=== PATIENT | male | born 1940 | race Caucasian/White ===

== ENCOUNTER → 2019-08-22 | Outpatient (CLI) | payer OTHER ==
[~2019-08-22] MED LIST: ACET120S PO; Alaway10 ML BOTHEYES; ENOX40I SC; FINA5 PO; Flonase 0.05% N16 GM; LOSA50 PO; Metamucil Plus1 EACH PO; PROM12.5S PO; Percocet 5-3251 EACH PO
[2019-08-22 15:00] LABS: Campylobacter Sp Not Detected (NOT DETECT); Clostridium Difficile PCR Not Detected (NOT DETECT); Plesiomonas Shigelloides Not Detected (NOT DETECT); Salmonella Sp Not Detected (NOT DETECT); Vibrio Cholerae Not Detected (NOT DETECT); Vibrio Sp Not Detected (NOT DETECT); Yersinia Enterocolitica Not Detected (NOT DETECT)
[2019-08-22 15:01] LABS: Adenovirus F 40/41 Not Detected (NOT DETECT); Astrovirus Not Detected (NOT DETECT); Cryptosporidium Not Detected (NOT DETECT); Cyclospora Cayetanensis Not Detected (NOT DETECT); E. Coli O157 Not Detected (NOT DETECT); Entamoeba Histolytica Not Detected (NOT DETECT); Enteroaggregative E. coli-EAEC Not Detected (NOT DETECT); Enteropathogenic E. coli-EPEC Not Detected (NOT DETECT); Enterotoxigenic E. coli-ETEC Not Detected (NOT DETECT); Giardia Lamblia Not Detected (NOT DETECT); Norovirus GI/GII Not Detected (NOT DETECT); Rotavirus A Not Detected (NOT DETECT); Sapovirus Not Detected (NOT DETECT); Shiga Toxin-prod E. coli-STEC Not Detected (NOT DETECT); Shigella/Enteroin E. coli-EIEC Not Detected (NOT DETECT)
== END ==
PROVIDERS: Hospitalist
DX: R19.7 Diarrhea, unspecified (principal); R19.5 Other fecal abnormalities

== ENCOUNTER 2019-10-25 08:15 | Day surgery (SDC) | payer OTHER ==
[~2019-10-25] VITALS: Ht 175.3 cm; Wt 101.6 kg
[~2019-10-25 08:15] MED LIST changes: +FLUT.05NI INH; -Flonase 0.05% N16 GM; +[UNRECOGNIZED DRUG - OTHER] PO
--- NOTE | 2019-10-25 08:55 | NUR ---
Ambulatory in Day Surgery History, Chart, Medications and Allergies reviewed before start of procedure. Lungs clear T/O to Auscultation. Patient confirms NPO status and agrees with scheduled surgery. Pre-Op teaching done. Pt verbalizes understanding. Patient States Post-Procedure ride home has been arranged.
--- NOTE | 2019-10-25 10:23 | NUR ---
10/25/19 [place]3 Katie Mansfield History, Chart, Medications and Allergies reviewed before start of procedure. Patient confirms NPO status and agrees with scheduled surgery. 3-LEAD EKG REVIEWED WITH PHYSICIAN PRIOR TO START OF PROCEDURE. PATIENT DETERMINED TO BE ASA APPROPRIATE FOR PROPOFOL SEDATION PRIOR TO START OF PROCEDURE BY . MONITOR INTACT WITH CONTINUOUS PULSE OXIMETRY AND INTERMITTENT BP.
--- NOTE | 2019-10-25 11:35 | NUR ---
Discharge instructions reviewed with patient. Patient verbalizes understanding. Copy given to patient to take home. Patient States Post-Procedure ride home has been arranged. Discharged via wheelchair to private car for ride home.
== END 2019-10-25 11:38 | disposition home or self-care (01) ==
LOC: ORSCMMR 08:15 → ORSCSDS 09:45 → ORSCMMR 11:38
PROVIDERS: Internal Medicine Gastroenterology
PROC: 0DBK8ZX Excision of Ascending Colon, Via Natural or Artificial Opening Endoscopic, Diagnostic (ICD-10-PCS; principal; 2019-10-25 09:45)
DX: Z12.11 Encounter for screening for malignant neoplasm of colon (principal); D12.2 Benign neoplasm of ascending colon; K57.30 Diverticulosis of large intestine without perforation or abscess without bleeding; K64.8 Other hemorrhoids; I10 Essential (primary) hypertension; E66.9 Obesity, unspecified; Z68.34 Body mass index [BMI] 34.0-34.9, adult
CPT/HCPCS: 88305; J2704; J7120

== ENCOUNTER → 2021-07-12 | Outpatient (CLI) | payer OTHER ==
[2021-07-12 10:41] LABS: BASOPHILS ABSOLUTE AUTO 0.05 K/mm3 (0.00-0.23); BASOPHILS PERCENT AUTO 1 % (0-2); EOSINOPHILS ABSOLUTE AUTO 0.11 K/mm3 (0.00-0.68); EOSINOPHILS PERCENT AUTO 1 % (0-6); Hematocrit 41.7 % (37.0-53.0); Hemoglobin 14.1 g/dL (13.5-17.5); IMMATURE GRAN ABSOLUTE AUTO 0.04 K/mm3 (0.00-0.10); IMMATURE GRAN PERCENT AUTO 1 % (0-1); LYMPHOCYTES ABSOLUTE AUTO 1.69 K/mm3 (0.84-5.20); LYMPHOCYTES PERCENT AUTO 22 % (21-46); MONOCYTES ABSOLUTE AUTO 0.49 K/mm3 (0.16-1.47); MONOCYTES PERCENT AUTO 6 % (4-13); Mean Corpuscular HGB 34.6 pg (26.0-34.0); Mean Corpuscular HGB Conc 33.8 g/dL (31.5-36.5); Mean Corpuscular Volume 102 fL (80-100); Mean Platelet Volume 10.8 fL (9.1-12.4); NEUTROPHILS ABSOLUTE AUTO 5.31 K/mm3 (1.96-9.15); NEUTROPHILS PERCENT AUTO 69 % (41-73); Platelet Count 203 K/mm3 (150-400); RDW Coefficient Variation 13.9 % (11.7-14.2); RDW Standard Deviation 52.1 fL (35.1-46.3); Red Blood Cell Count 4.08 M/mm3 (4.30-5.90); White Blood Cell Count 7.69 K/mm3 (4.00-11.30)
[2021-07-12 11:21] LABS: Creatinine, Urine Random 91.4 mg/dL (27.00-270.00); Microalb/Creat Ratio UR, Rand 70.022 mg/g (0.000-30.000)
[2021-07-12 11:45] LABS: Alanine Aminotransfer (ALT/SGP 19 U/L (12-78); Albumin, Blood 3.9 g/dL (3.4-5.0); Albumin/Globulin Ratio 1.4 (0.8-1.8); Alk Phos 67 U/L (50-136); Anion Gap 5 mmol/L (6-16); Aspartate Aminotrans (AST/SGOT 17 U/L (12-37); Bilirubin, Total 0.7 mg/dL (0.1-1.0); Blood Urea Nitrogen 24 mg/dL (8-24); Bun/Creatinine Ratio 35.1 (12.0-20.0); CO2, Blood 28 mmol/L (21-32); Chloride, Blood 107 mmol/L (98-108); Creatinine, Blood 0.68 mg/dL (0.60-1.20); Globulin, Blood 2.8 g/dL (2.2-4.0); Glomerular Filtration Rate >60 (60-); Glucose, Blood 103 mg/dL (70-99); Potassium, Blood 3.8 mmol/L (3.5-5.5); Sodium, Blood 140 mmol/L (136-145); Total Protein, Blood 6.7 g/dL (6.4-8.2)
== END | disposition home or self-care (01) ==
LOC: LAB SHORT 07:29 → LAB 07:29
PROVIDERS: Hospitalist
DX: I10 Essential (primary) hypertension (principal); N40.0 Benign prostatic hyperplasia without lower urinary tract symptoms; M06.4 Inflammatory polyarthropathy; R73.01 Impaired fasting glucose; R97.20 Elevated prostate specific antigen [PSA]
CPT/HCPCS: 36415; 80053; 82043; 82570; 83036; 84153; 85025

== ENCOUNTER 2021-09-15 08:24 | Day surgery (SDC) | payer OTHER ==
[~2021-09-15] VITALS: Ht 175.3 cm; Wt 88.0 kg
[~2021-09-15 08:24] MED LIST changes: +Carisoprodol350 MG PO; +MELO7.5 PO
--- NOTE | 2021-09-15 11:11 | NUR ---
09/15/21 Delma Gilbert PRIOR TO ARRIVING IN THE OR, PATIENT RECEIVED VANCO 1GM IN THE PREOP SETTING.
--- NOTE | 2021-09-15 12:16 | NUR ---
1030- PT BILATERAL HEARING AIDES BACK TO OR WITH PATIENT.
--- NOTE | 2021-09-15 13:33 | NUR ---
PATIENT BROUGHT TO PACU AFTER SURGERYON PATIENT'S LEFT KNEE, PATIENT IS A&O x4, WOUUND IS CD&I, PATIENT IS GOING TO THE FLOOR FOR RECOVERY. THE PATIENT WAS STRIAGHT CATHED AND A TOTAL OF 900 ML'S OF CLEAR URINE WAS DICHARGED.
--- NOTE | 2021-09-15 18:21 | NUR ---
SHIFT SUMMARY PT POD #0 FOR L TOTAL KNEE. PT HAD A SPINAL DURING SURGERY AND HAS REGAINED SENSATION IN HIS LEGS. PT HAS YET TO EXPERIENCE PAIN BUT HAS HAD SOME SORENESS. HE WORKED WITH PHYSICAL THERAPY AND DID WELL. PT UP IN THE CHAIR AND RESTING COMFORTABLY. VSS.
[2021-09-16 05:16] LABS: BASOPHILS ABSOLUTE AUTO 0.01 K/mm3 (0.00-0.23); BASOPHILS PERCENT AUTO 0 % (0-2); EOSINOPHILS PERCENT AUTO 0 % (0-6); Hemoglobin 12.5 g/dL (13.5-17.5); IMMATURE GRAN ABSOLUTE AUTO 0.05 K/mm3 (0.00-0.10); IMMATURE GRAN PERCENT AUTO 1 % (0-1); LYMPHOCYTES PERCENT AUTO 8 % (21-46); MONOCYTES ABSOLUTE AUTO 0.68 K/mm3 (0.16-1.47); MONOCYTES PERCENT AUTO 6 % (4-13); Mean Corpuscular HGB 34.2 pg (26.0-34.0); Mean Corpuscular HGB Conc 33.8 g/dL (31.5-36.5); Mean Corpuscular Volume 101 fL (80-100); Mean Platelet Volume 11.2 fL (9.1-12.4); NEUTROPHILS ABSOLUTE AUTO 9.35 K/mm3 (1.96-9.15); NEUTROPHILS PERCENT AUTO 85 % (41-73); Platelet Count 188 K/mm3 (150-400); RDW Coefficient Variation 13.7 % (11.7-14.2); RDW Standard Deviation 51.7 fL (35.1-46.3); Red Blood Cell Count 3.65 M/mm3 (4.30-5.90); White Blood Cell Count 10.99 K/mm3 (4.00-11.30)
--- NOTE | 2021-09-16 05:20 | NUR ---
NET WEB DEVELOPER SUMMARY PT POD 0 FOR L TKA. PT HAS BEEN AMBULATING IN THE HALLS WITH A FWW AND IS DOING WELL. PAIN WELL MANAGED WITH SCHEDULED TORADOL AND TYLENOL. PT HAS SLEPT THROUGH THE NIGHT IN THE RECLINER WITH LEGS ELEVATED. VSS, WILL CONTINUE TO MONITOR.
[2021-09-16 05:36] LABS: Bun/Creatinine Ratio 32.9 (12.0-20.0); Calcium, Blood 8.8 mg/dL (8.5-10.1); Creatinine, Blood 0.76 mg/dL (0.60-1.20); Potassium, Blood 4.6 mmol/L (3.5-5.5)
[2021-09-16] MEDS ORDERED: Hydrocodone-Ap1 EA26 PO (10:16)
[2021-09-16] MEDS ORDERED: PROM25 PO (10:17)
[2021-09-16] MEDS ORDERED: XARELTO20 MG PO (10:18)
--- NOTE | 2021-09-16 10:59 | NUR ---
DISCHARGE SUMMARY PT POD #1 FOR L KNEE ARTHROPLASTY. DRESSING CHANGED TO [employer] [facility]. PT WORKED WITH PHYSICAL THERAPY AND DID WELL. PAIN WELL CONTROLLED. DISCHARGED HOME WITH .
== END 2021-09-16 11:00 | disposition home or self-care (01) ==
LOC: ORSCMMR 08:24 → ORD 10:45 → ORSCMMR 10:45 → SURS 13:21 → ORSCMMR 09-16 11:00
PROVIDERS: Orthopaedic Surgery
PROC: 8E0YXBZ Computer Assisted Procedure of Lower Extremity (ICD-10-PCS; principal; 2021-09-15 10:45)
PROC: 0SRD0J9 Replacement of Left Knee Joint with Synthetic Substitute, Cemented, Open Approach (ICD-10-PCS; principal; 2021-09-15 10:45)
DX: M17.0 Bilateral primary osteoarthritis of knee (principal); I10 Essential (primary) hypertension; Z79.899 Other long term (current) drug therapy; Z86.718 Personal history of other venous thrombosis and embolism
CPT/HCPCS: 36415; 73560-LT; 80048; 83735; 85025; 97110; 97116; 97162; A9270; C1713; C1776; J0171; J0690; J0735; J1100; J1885; J2250; J2370; J2405; J2704; J2795; J3010; J3370; J7050; J7060; J7120

== ENCOUNTER 2022-09-09 07:45 | Day surgery (SDC) | payer OTHER ==
[~2022-09-09] VITALS: Ht 175.3 cm; Wt 84.8 kg
[~2022-09-09 07:45] MED LIST changes: +Hydrocodone-Ap1 EA26 PO; +PROM25 PO; +XARELTO20 MG PO
--- NOTE | 2022-09-09 09:19 | NUR ---
09/09/22 0919 Gabi Stoll PREPPED PENIS NAD TESTICLES WITH PROVIDONE-IODINE AND INGUINAL AREA TO UMBILICAL AREA WITH DURAPREP
[2022-09-09 10:56] VITALS: BP 154/76
== END 2022-09-09 11:40 | disposition home or self-care (01) ==
LOC: ORSCSDS 07:45
PROVIDERS: Surgery
PROC: 0YU60JZ Supplement Left Inguinal Region with Synthetic Substitute, Open Approach (ICD-10-PCS; principal; 2022-09-09 08:45)
DX: K40.90 Unilateral inguinal hernia, without obstruction or gangrene, not specified as recurrent (principal); I10 Essential (primary) hypertension; Z79.899 Other long term (current) drug therapy
CPT/HCPCS: A9270; C1781; J0690; J1100; J2250; J2370; J2405; J2704; J2795; J3010; J7120

== ENCOUNTER 2022-09-09 18:07 | Emergency (ER) | payer OTHER ==
[~2022-09-09] VITALS: Ht 175.3 cm; Wt 81.7 kg
[2022-09-09 18:17] VITALS: BP 160/81
== END 2022-09-09 19:00 | disposition home or self-care (01) ==
LOC: ER 18:07
DX: R33.9 Retention of urine, unspecified (principal); I10 Essential (primary) hypertension; Z87.442 Personal history of urinary calculi; Z88.2 Allergy status to sulfonamides; Z88.5 Allergy status to narcotic agent; Z88.8 Allergy status to other drugs, medicaments and biological substances
CPT/HCPCS: 51702; 51798; 99283-25

== ENCOUNTER 2022-11-16 06:09 | Day surgery (SDC) | payer OTHER | END 2022-11-17 10:20 | disposition home or self-care (01) | LOC: ORSCMMR 06:09 → SURS 10:54 | PROC: 0SRC0J9 Replacement of Right Knee Joint with Synthetic Substitute, Cemented, Open Approach (ICD-10-PCS; principal; 2022-11-16) | DX: M17.11 Unilateral primary osteoarthritis, right knee (principal); Z96.652 Presence of left artificial knee joint; Z86.718 Personal history of other venous thrombosis and embolism; Z79.01 Long term (current) use of anticoagulants; I10 Essential (primary) hypertension; Z79.899 Other long term (current) drug therapy ==